=== PATIENT | male | born 1965 | race Caucasian/White ===

== ENCOUNTER 2017-01-17 13:47 | Emergency (ER) | payer SELFPAY ==
[~2017-01-17] VITALS: Ht 170.2 cm; Wt 77.1 kg
[~2017-01-17 13:47] MED LIST: ATIVAN1 MG PO; FLAGYL250 MG PO; FLORASTOR250 MG PO; LEVAQUIN500 MG PO; METOPROLOL50 M1 PO; NORCO 325 MG-7.1 TAB PO; PRINIVIL10 M1 PO; PROTONIX40 MG/Pack PO; ZOFRAN4 M3 PO
[2017-01-17 14:10] VITALS: BP 155/92
[2017-01-17] MEDS ORDERED: KETOROLAC 60 MG/2 ML VIAL IM ONE (14:15)
[2017-01-17] MEDS ORDERED: ONDANSETRON 4 MG ODT PO ONE (14:15)
[2017-01-17] MEDS ORDERED: ONDANSETRON 4 MG/2 ML VIAL IVP ONE (14:20)
[2017-01-17] MEDS ORDERED: KETOROLAC 30 MG/ML VIAL IVP ONE (14:20)
--- NOTE | 2017-01-17 14:20 | NUR ---
PATIENT WHEELCHAIR ASSISTED TO BED 3 AT THIS TIME.
--- NOTE | 2017-01-17 14:22 | NUR ---
51/M BIB C/O N/V/D X 3 DAYS. PT STATES HAS PAIN MID EPIGASTRIUM & R FLANK & N/V AT THIS TIME; SKIN IS PINK/WARM/DRY; AAOX4 WITH EVEN AND STEADY GAIT; LUNGS CLEAR BL; HR EVEN AND REGULAR; PT DENIES ANY FEVER, SOB, OR COUGH AT THIS TIME; PATIENT STATES PAIN OF 8/10 AT THIS TIME; VSS; PATIENT POSITIONED FOR COMFORT; HOB ELEVATED; BEDRAILS UP X2; BED DOWN. ER MD MADE AWARE OF PT STATUS.
--- NOTE | 2017-01-17 14:30 | NUR ---
LAB AT BEDSIDE
--- NOTE | 2017-01-17 15:20 | NUR ---
ALL MEDICATIONS ADMINISTERED TO IV RIGHT FOOT
[2017-01-17] MEDS ORDERED: MORPHINE SULFATE 4 MG/ML SYR IVP ONE ×2 (15:25→17:05)
[2017-01-17] MEDS ORDERED: PROMETHAZINE 25 MG/ML VIAL IVP ONE ×2 (15:25→17:05)
--- NOTE | 2017-01-17 16:06 | NUR ---
PT C/O STOMACH PAIN 03/05. ER MD DR DUARTE NOTIFIED. WILL CONTINUE TO MONITOR.
--- NOTE | 2017-01-17 16:12 | NUR ---
John barrett in [facility] - 01/17/17 at 1612 by MED1 RT AT BEDSIDE
--- NOTE | 2017-01-17 16:47 | NUR ---
Patient appears to be resting comfortably in bed. Vital Signs within normal limits. Respirations even and unlabored.WILL CONTINUE MONITOR
[2017-01-17 18:10] VITALS: BP 115/78
--- NOTE | 2017-01-17 18:10 | NUR ---
Patient discharged with v/s stable. Written and verbal after care instructions given and explained. Patient alert, oriented and verbalized understanding of instructions. Wheel Chair Assisted with to car. All questions addressed prior to discharge. ID band removed. Patient advised to follow up with PMD. Rx of PHENERGAN & NORCO given. Patient educated on indication of medication including possible reaction and side effects. Opportunity to ask questions provided and answered.
== END 2017-01-17 18:10 | disposition home or self-care (01) ==
LOC: MED 13:47
DX: R10.31 Right lower quadrant pain (principal); R11.2 Nausea with vomiting, unspecified; K21.9 Gastro-esophageal reflux disease without esophagitis; I10 Essential (primary) hypertension; Z87.442 Personal history of urinary calculi; Z88.8 Allergy status to other drugs, medicaments and biological substances
CPT/HCPCS: 36415; 74176; 80053; 83690; 85025; 96374; 96375; 96376; 99285; J1885; J2270; J2405; J2550

== ENCOUNTER 2017-01-19 09:43 | Inpatient (IN) | payer SELFPAY ==
[~2017-01-19] VITALS: Ht 170.2 cm; Wt 78.5 kg
[2017-01-19 09:51] VITALS: BP 158/110
[2017-01-19] MEDS ORDERED: PANTOPRAZOLE 40 MG INJ VIAL IVP ONE (09:55)
[2017-01-19] MEDS ORDERED: ONDANSETRON 4 MG/2 ML VIAL IVP ONE (09:55)
[2017-01-19] MEDS ORDERED: NACL 0.9% 1,000 ML IV ONE (09:55)
[2017-01-19] MEDS ORDERED: KETOROLAC 30 MG/ML VIAL IVP ONE (10:05)
--- NOTE | 2017-01-19 10:57 | NUR ---
PT STATES ABDOMEN PAIN FOR ONE DAY . DENIES D; SKIN IS PINK/WARM/DRY; AAOX4 WITH EVEN AND STEADY GAIT; LUNGS CLEAR BL; HR EVEN AND REGULAR; PT DENIES ANY FEVER, CP, SOB, OR COUGH AT THIS TIME; PATIENT STATES PAIN OF 10/10 AT THIS TIME; VSS; PATIENT POSITIONED FOR COMFORT; HOB ELEVATED; BEDRAILS UP X2; BED DOWN. ER MD MADE AWARE OF PT STATUS.
[2017-01-19] MEDS ORDERED: fentaNYL 0.05 MG/ML VIAL IVP ONE (11:00)
--- NOTE | 2017-01-19 11:26 | NUR ---
PT LEFT FOR X RAY
[2017-01-19] MEDS ORDERED: PROMETHAZINE 25 MG/ML VIAL IVP ONE (11:45)
--- NOTE | 2017-01-19 12:19 | NUR ---
PT AWAKE, ALERT, ORIENTED. STATES PAIN SCALE 8/10 AT THIS TIME.
--- NOTE | 2017-01-19 12:55 | NUR ---
Patient will be admitted to care of DR. ISLAS. Admited to TELE Will go to [facility] [address] Bel[facility] list completed. Report to LUCRECIA POWELL RN
[2017-01-19] MEDS ORDERED: DOCUSATE SODIUM 100 MG GELCAP PO PRN (13:05)
[2017-01-19] MEDS ORDERED: ACETAMINOPHEN 325 MG TAB PO PRN (13:05)
--- NOTE | 2017-01-19 13:10 | NUR ---
RECEIVED PATIENT FROM ER WITH CHIEF COMPLAINING OF INTRACTABLE N/V. ABD PAIN TO LOWER RIGHT WAIST AREA. PATIENT APPEARED TO BE GUARDED AND IN PAIN, AND NAUSEA BUT NO VOMITING. AAOX4, NO SOB DISTRESS NOTED. VSS STABLE WITH NO FEVER. O2 SAT AT 99% ON ROOM AIR. INITIAL ASSESSMENT DONE. SKIN INTACT. LUNG SOUNDED CLEAR. BOWEL SOUNDED ACTIVE. PATIENT HAS IV TO LEFT HAND 22G INTACT AND FLUSHED WELL. INSTRUCTED PATIENT TO STAY CALM, PLAN OF CARE AND PAIN MANAGEMENT DISCUSSED, PATIENT VERBALIZED UNDERSTANDING. HEAD OF BED ELEVATED. MRSA SWAB DONE. PUT PATIENT ON TELE MONITOR. REORIENTED PATIENT TO CURRENT UNIT. CALL LIGHT WITHIN REACH. WILL CONTINUE TO MONITOR.
[2017-01-19] MEDS ORDERED: METOPROLOL 50 MG TAB PO SCH (13:20)
[2017-01-19 13:29] VITALS: BP 140/88
[2017-01-19] MEDS: PIPER/TAZO 3.375GM/D5W PREMIX 50 ML IV SCH ×2 (13:58→20:09)
[2017-01-19] MEDS: MORPHINE SULFATE 2 MG/ML SYR IVP PRN ×2 (13:59→20:10)
[2017-01-19] MEDS: NACL 0.9% 1,000 ML IV SCH ×2 (13:59→21:50)
[2017-01-19] MEDS ORDERED: POTASSIUM CHLORIDE 40 MEQ, LIDOCAINE 1% 25 MG in NACL 0.9% 250 ML IV SCH (14:00)
--- NOTE | 2017-01-19 14:01 | NUR ---
MORPHINE 2MG IVP GIVEN FOR ABD PRESSURE AND STABBING PAIN 07/05. HEAD OF BED ELEVATED, PATIENT APPEARED TO BE CALMER NOW. INSTRUCTED PATIENT TO PUSH CALL LIGHT WHEN NEEDED HELPS, PATIENT VERBALIZED UNDERSTANDING. NO SIGN OF DISTRESS NOTED. CALL LIGHT WITHIN REACH. WILL CONTINUE TO MONITOR.
[2017-01-19 16:00] VITALS: BP 116/81
[2017-01-19] MEDS ORDERED: LISINOPRIL 10 MG TAB PO SCH (16:00)
--- NOTE | 2017-01-19 16:00 | NUR ---
SCD APPLIED TO BLE. PATIENT TOLERATED WELL. NO SIGN OF DISTRESS NOTED. FAMILY MEMBER AT BEDSIDE. CALL LIGHT WITHIN REACH. WILL CONTINUE TO MONITOR.
[2017-01-19] MEDS ORDERED: METOPROLOL50 M1 PO (16:26)
--- NOTE | 2017-01-19 19:27 | NUR ---
RECEIVED PT REPORT FROM MIKA ROPER AT BEDSIDE, FOR CONTINUITY OF CARE. PT STABLE IN ROOM WITH FAMILY, NO DISTRESS NOTED. CALL LIGHT WITHIN REACH.
--- NOTE | 2017-01-19 19:30 | NUR ---
ENDORSED PATIENT CURRENT PLAN OF CARE TO NIGHT NURSE RUBÉN ROPER. PATIENT RESTING WELL IN BED. NO SIGN OF DISTRESS NOTED.
--- NOTE | 2017-01-19 19:40 | NUR ---
SHIFT ASSESSMENT DONE AT THIS TIME. PT IS A/O X4, NO ACUTE DISTRESS. PT ABLE TO FOLLOW COMMANDS AND VERBALIZED NEEDS. VITAL SIGNS ARE STABLE, PT ON ROOM AIR WITH OXYGEN SATURATION AT 95%. NO RESPIRATORY DISTRESS NOTED. PT DENIES CHEST PAIN OR SOB. PT C.O. RT LOWER ABDOMINAL PAIN AND NAUSEA, WILL PROVIDE MEDICATION ORDERED, SEE eMAR. NO VOMITING NOTED. LUNG SOUNDS ARE CLEAR, BOWEL SOUNDS ARE ACTIVE. IV ACCESS NOTED TO LEFT HAND #20G, PATENT AND INTACT. SKIN INTACT. ALLERGY AND ID BAND ON. SCD'S IN PLACE. IS AT BEDSIDE, PT DEMONSTRATED USE AND VERBALIZED UNDERSTANDING OF USE. ALL NEEDS MET, SAFETY PRECAUTIONS IMPLEMENTED. CALL LIGHT WITHIN REACH. WILL CONTINUE TO MONITOR PT.
[2017-01-19 20:00] VITALS: BP 124/79
[2017-01-19] MEDS: SACCHAROMYCES 250 MG CAP PO SCH (20:09)
[2017-01-19] MEDS: ONDANSETRON 4 MG/2 ML VIAL IVP PRN (20:10)
--- NOTE | 2017-01-19 20:10 | NUR ---
PROVIDED PT WITH PAIN AND NAUSEA MEDICATION. SEE eMAR. PT ALSO TOLERATED SCHEDULED PM MEDICATIONS. NO ACUTE DISTRESS NOTED AT THIS TIME. WILL CONTINUE TO MONITOR. CALL LIGHT WITHIN REACH.
--- NOTE | 2017-01-19 21:50 | NUR ---
PT REQUESTING MEDICATION FOR SLEEP, PER PT, PT HAS TROUBLE SLEEPING. MD DR. CR AWARE AND WILL PLACE NEW ORDERS.
[2017-01-19] MEDS ORDERED: ZOLPIDEM 10 MG TAB PO SCH (21:55)
--- NOTE | 2017-01-19 22:12 | NUR ---
PROVIDED PT WITH SLEEPING MEDICATION, SEE eMAR. PT REMAINS STABLE. NO DISTRESS.
[2017-01-20] VITALS: BP 108/71
[2017-01-20] MEDS: ONDANSETRON 4 MG/2 ML VIAL IVP PRN ×5 (00:08→22:36)
[2017-01-20] MEDS: MORPHINE SULFATE 2 MG/ML SYR IVP PRN ×5 (00:09→22:36)
--- NOTE | 2017-01-20 00:09 | NUR ---
PT VITAL SIGNS REMAIN STABLE, PT C.O. PAIN, PAIN MEDICATION ADMINISTERED. SEE eMAR.
--- NOTE | 2017-01-20 01:10 | NUR ---
PT STABLE, NO S/S OF ACUTE DISTRESS. PT SLEEPING WELL. CALL LIGHT WITHIN REACH.
--- NOTE | 2017-01-20 02:01 | NUR ---
PT SLEEPING NO DISTRESS NOTED. CALL LIGHT WITHIN REACH.
--- NOTE | 2017-01-20 03:19 | NUR ---
WATCHING TV AT THIS TIME. NO DISCOMFORT NOTED. PT. ON BEDSIDE. Addendum: 01/20/17 at 1737 by Geovanni Ramirez LVN WRONG ENTRY: ENTERED WRONG TIME.
[2017-01-20 04:00] VITALS: BP 106/72
--- NOTE | 2017-01-20 04:00 | NUR ---
PT VITAL SIGNS REMAIN STABLE, PT C.O. PAIN. PROVIDED PAIN MEDICATION PER ORDERS, SEE eMAR. CALL LIGHT WITHIN REACH.
[2017-01-20] MEDS: PIPER/TAZO 3.375GM/D5W PREMIX 50 ML IV SCH ×3 (04:18→21:13)
[2017-01-20] MEDS: NACL 0.9% 1,000 ML IV SCH ×2 (04:18→15:11)
--- NOTE | 2017-01-20 06:00 | NUR ---
PT REMAINS ASLEEP, NO DISTRESS NOTED. CALL LIGHT WITHIN EASY REACH.
--- NOTE | 2017-01-20 06:58 | NUR ---
PATIENT HAS BEEN SCREENED AND CATEGORIZED MODERATE NUTRITION RISK. PATIENT WILL BE SEEN WITHIN 3-5 DAYS OF ADMISSION. 01/22/17-01/24/17 DEVI BUTLER MS, RDN
--- NOTE | 2017-01-20 07:12 | NUR ---
ASSUMED CONTINUITY OF CARE. NO SIGNS AND SYMPTOMS OF ACUTE DISTRESS NOTED. INITIAL ASSESSMENT DONE. KEEP COMFORTABLE ON BED. EXPLAINED DIAGNOSIS, PLAN OF CARE, PAIN MANAGEMENT TEACHING, USE OF CALL LIGHT/BED/TV/BATHROOM. VERBALIZED UNDERSTANDING. CALL LIGHT WITHIN REACH.
--- NOTE | 2017-01-20 07:12 | NUR ---
ENDORSED PT TO RADHA Ritter LVN FOR PT CONTINUITY OF CARE. PT SLEEPING AT THIS TIME, IN STABLE CONDITION. NO DISTRESS.
[2017-01-20 08:00] VITALS: BP 110/73
--- NOTE | 2017-01-20 08:22 | NUR ---
DR. BERNAL CAME AND SPOKE TO PT. AND PT. .
[2017-01-20] MEDS: PANTOPRAZOLE 40 MG INJ VIAL IVP SCH (08:46)
[2017-01-20] MEDS: GABAPENTIN 100 MG CAP PO SCH ×3 (09:21→17:26)
[2017-01-20] MEDS: DOCUSATE SODIUM 100 MG GELCAP PO SCH ×2 (09:21→21:14)
[2017-01-20] MEDS: SACCHAROMYCES 250 MG CAP PO SCH ×2 (09:21→21:13)
[2017-01-20] MEDS: LISINOPRIL 10 MG TAB PO SCH (09:22)
--- NOTE | 2017-01-20 09:42 | NUR ---
WENT TO CT VIA WHEELCHAIR. NO C/O PAIN. IN STABLE CONDITION.
--- NOTE | 2017-01-20 09:54 | NUR ---
BACK FROM CT VIA WHEELCHAIR. NO C/O PAIN. NO C/O NAUSEA. KEEP COMFORTABLE ON BED. CALL LIGHT WITHIN REACH.
[2017-01-20 12:00] VITALS: BP 104/69
--- NOTE | 2017-01-20 12:00 | NUR ---
VITALS SIGNS STABLE. C/O ABD PAIN 2/10. NO ACUTE DISTRESS NOTED. WILL MONITOR.
--- NOTE | 2017-01-20 15:19 | NUR ---
WATCHING TV AT THIS TIME. NO DISCOMFORT NOTED. PT. ON BEDSIDE.
[2017-01-20 16:00] VITALS: BP 117/76
--- NOTE | 2017-01-20 19:09 | NUR ---
BEDSIDE REPORT GIVEN TO LISA DURBIN -JACQUELIN. IVF INFUSING WELL. IN STABLE CONDITION.
--- NOTE | 2017-01-20 19:10 | NUR ---
RECEIVED REPORT FROM DAY SOLAR HOT WATER INSTALLER, PATIENT IS AAOX4, ON ROOM AIR, NO SOB OR SIGN OF DISTRESS, PATIENT HAS IV TO LEFT THUMB 22G PATENT AND INTACT. PATIENT DENIES PAIN AT THIS TIME, DISCUSSED PLAN OF CARE WITH PATIENT, PATIENT VERBALIZED UNDERSTANDING, CALL LIGHT WITHIN REACH. WILL CONTINUE TO MONITOR.
[2017-01-20 20:00] VITALS: BP 115/71
[2017-01-20] MEDS ORDERED: ZOLPIDEM 10 MG TAB PO SCH (20:30)
--- NOTE | 2017-01-20 21:00 | NUR ---
CALLED DR CR FOR A REQUEST OF A SLEEP AID PER PATIENT REQUEST, ORDER RECEIVED, WILL FOLLOW UP WITH ORDER.
[2017-01-20] MEDS: SODIUM PHOS / POTASSIUM PHOS 1 PKT PDR PO SCH (21:13)
[2017-01-20] MEDS: METOPROLOL 50 MG TAB PO SCH (21:14)
--- NOTE | 2017-01-20 21:25 | NUR ---
PM MEDS GIVEN, PATIENT TOLERATED WELL, CALL LIGHT WITHIN REACH. WILL CONTINUE TO MONITOR.
--- NOTE | 2017-01-20 22:50 | NUR ---
PATIENT C/O PAIN OF ABD, ADMINISTERED MORPHINE PER MD ORDER, CALL LIGHT WITHIN REACH. WILL CONTINUE TO MONITOR.
[2017-01-21] VITALS (7 sets, daily range): BP systolic 103–144; BP diastolic 65–89
--- NOTE | 2017-01-21 00:15 | NUR ---
VITAL SIGNS STABLE, NO SOB OR SIGN OF DISTRESS, CALL LIGHT WITHIN REACH. WILL CONTINUE TO MONITOR.
--- NOTE | 2017-01-21 02:15 | NUR ---
PATIENT SLEEPING, NO SOB OR SIGN OF DISTRESS, CALL LIGHT WITHIN REACH. WILL CONTINUE TO MONITOR.
[2017-01-21] MEDS: PIPER/TAZO 3.375GM/D5W PREMIX 50 ML IV SCH ×3 (04:37→20:39)
[2017-01-21] MEDS: ONDANSETRON 4 MG/2 ML VIAL IVP PRN ×3 (04:38→22:13)
[2017-01-21] MEDS: MORPHINE SULFATE 2 MG/ML SYR IVP PRN ×4 (04:38→22:12)
--- NOTE | 2017-01-21 04:40 | NUR ---
PATIENT C/O PAIN IN ABDOMEN, ADMINISTERED MORPHINE AND ZOFRAN PER MD ORDER, CALL LIGHT WITHIN REACH. WILL CONTINUE TO MONITOR
--- NOTE | 2017-01-21 06:05 | NUR ---
PATIENT SLEEPING, NO SOB OR SIGN OF DISTRESS, CALL LIGHT WITHIN REACH. WILL CONTINUE TO MONITOR.
[2017-01-21] MEDS: NACL 0.9% 1,000 ML IV SCH ×2 (06:18→20:40)
--- NOTE | 2017-01-21 07:00 | NUR ---
CHECKED ON PATIENT, TECH MONITOR ALERTED PATIENT HR DROPPING TO 45, PATIENT SITTING UP IN BED RESTING, STATED HE WAS OKAY AND JUST FELT TIRED CHECKED BP 115/70 HR INCREASED TO 57, CALL LIGHT WITHIN REACH. WILL CONTINUE TO MONITOR.
--- NOTE | 2017-01-21 07:15 | NUR ---
ENDORSED PATIENT TO DAY PLATE PREPARER AT BEDSIDE, PATIENT IN STABLE CONDITION.
--- NOTE | 2017-01-21 08:00 | NUR ---
Patient's Plan of Care was discussed and reviewed with LOAD OUT SUPERVISOR: RADHA
[2017-01-21] MEDS: DOCUSATE SODIUM 100 MG GELCAP PO SCH ×2 (08:34→20:39)
[2017-01-21] MEDS: SACCHAROMYCES 250 MG CAP PO SCH ×2 (08:34→20:39)
[2017-01-21] MEDS: GABAPENTIN 100 MG CAP PO SCH ×3 (08:34→16:58)
[2017-01-21] MEDS: LISINOPRIL 10 MG TAB PO SCH (08:36)
[2017-01-21] MEDS: METOPROLOL 50 MG TAB PO SCH ×2 (08:36→20:39)
[2017-01-21] MEDS: SODIUM PHOS / POTASSIUM PHOS 1 PKT PDR PO SCH ×3 (08:37→20:44)
[2017-01-21] MEDS: PANTOPRAZOLE 40 MG INJ VIAL IVP SCH (08:43)
--- NOTE | 2017-01-21 10:00 | NUR ---
NO ACUTE DISTRESS NOTED. C/O ABD PAIN 08/05. PAIN MANAGEMENT TEACHING EXPLAINED. VERBALIZED UNDERSTANDING. KEEP COMFORTABLE ON BED. INFORMED DR. WHYTE OF PT. C/O ABD 08/05. AND ASKED FOR ANY ORDER. PER DR. WHYTE, GIVE MORPHINE 2 MG. IVP ORDERED. INFORMED CHARGE NURSE DANIEL BARRAGAN. WILL MEDICATE PER MD ORDER.
--- NOTE | 2017-01-21 11:10 | NUR ---
DR. CR AND DR. WHYTE CAME AND SPOKE TO PT..
--- NOTE | 2017-01-21 13:20 | NUR ---
RADIOLOGY STAFF -ALLA PICK-UP PT. FOR CXR VIA WHEELCHAIR. IN STABLE CONDITION.
[2017-01-21] MEDS ORDERED: KETOROLAC 15 MG/ML VIAL IVP PRN (13:30)
[2017-01-21] MEDS ORDERED: GABAPENTIN 300 MG CAP PO SCH (15:00)
--- NOTE | 2017-01-21 17:38 | NUR ---
SEEN WATCHING TV AT THIS TIME. NO DISCOMFORT NOTICED. CALL LIGHT WITHIN REACH.
--- NOTE | 2017-01-21 19:10 | NUR ---
ENDORSED TO LISA DURBIN -JACQUELIN. IN STABLE CONDITION. PT. ON BEDSIDE. IV ACCESS ON LEFT HAND INFILTRATED. TRIED TO INSERT IV ONCE BUT UNSUCCESSFUL. ENDORSED TO [facility] NURSE TO INSERT IV ACCESS.
--- NOTE | 2017-01-21 19:15 | NUR ---
RECEIVED REPORT FROM DAY SHIFT ESTIMATION MANAGER AT BEDSIDE, PATIENT IS AAOX4, RESTING IN BED WITH AT BEDSIDE, PATIENT IS ON ROOM AIR, NO SOB OR SIGN OF DISTRESS AT THIS TIME, NO COMPLAINT OF PAIN, PATIENT SKIN IS INTACT. CURRENTLY HAS IV TO LH 22G SALINE LOCKED, PER DAY SHIFT, IV BECAME INFILTRATED, WILL INSERT NEW IV. DISCUSSED PLAN OF CARE WITH PATIENT, PATIENT VERBALIZED UNDERSTANDING, CALL LIGHT WITHIN REACH. WILL CONTINUE TO MONITOR.
--- NOTE | 2017-01-21 20:07 | NUR ---
CALLED DR CR, PATIENT REQUESTED SLEEPING AID, DR CR TO PUT IN ORDER, WILL FOLLOW UP.
--- NOTE | 2017-01-21 20:30 | NUR ---
NEW IV STARTED TO PTS LEFT FOREARM, 22G PATENT, PATIENT TOLERATED WELL.
--- NOTE | 2017-01-21 20:44 | NUR ---
PM MEDS TAKEN, PATIENT TOLERATED WELL, PATIENT REFUSED NEUTRAPHOS PACKET, STATES MAKES HIM SICK, WILL CONTINUE TO MONITOR
[2017-01-21] MEDS: ZOLPIDEM 10 MG TAB PO SCH (21:00)
--- NOTE | 2017-01-21 22:30 | NUR ---
PATIENT RESTING IN BED, ADMINISTERED MORPHINE PER MD ORDER, PT C/O PAIN IN ABDOMEN, CALL LIGHT WITHIN REACH, WILL CONTINUE TO MONITOR
[2017-01-22] VITALS (7 sets, daily range): BP systolic 105–140; BP diastolic 63–78
--- NOTE | 2017-01-22 00:15 | NUR ---
VITAL SIGNS STABLE, PATIENT SLEEPING, CALL LIGHT WITHIN REACH. WILL CONTINUE TO MONITOR.
--- NOTE | 2017-01-22 02:10 | NUR ---
PATIENT SLEEPING, NO SOB OR SIGN OF DISTRESS, CALL LIGHT WITHIN REACH. WILL CONTINUE TO MONITOR.
--- NOTE | 2017-01-22 04:30 | NUR ---
PATIENT SLEEPING, NO SOB OR SIGN OF DISTRESS, VITAL SIGNS STABLE, CALL LIGHT WITHIN REACH. WILL CONTINUE TO MONITOR.
[2017-01-22] MEDS: PIPER/TAZO 3.375GM/D5W PREMIX 50 ML IV SCH ×3 (04:31→20:19)
[2017-01-22] MEDS: MORPHINE SULFATE 2 MG/ML SYR IVP PRN ×3 (04:32→23:56)
--- NOTE | 2017-01-22 05:50 | NUR ---
PATIENT SLEEPING, NO SOB OR SIGN OF DISTRESS, CALL LIGHT WITHIN REACH. WILL CONTINUE TO MONITOR.
--- NOTE | 2017-01-22 07:17 | NUR ---
PATIENT SITTING UP IN BED, ENDORSED CARE TO DAY SHIFT RN AT BEDSIDE, PATIENT IN STABLE CONDITION.
--- NOTE | 2017-01-22 07:20 | NUR ---
RECEIVED REPORT FROM JACQUELIN GONZALEZ. PT IS SITTING UP IN BED, AAOx4, SKIN IS INTACT, IV ON LT FA 22 G, PATIENT AND INTACT, INFUSING WELL. NO S/S OF RESPIRATORY DISTRESS OR DISCOMFORT NOTED. SAFETY/FALL PRECAUTIONS IN PLACE. DISCUSSED PLAN OF CARE, PT VERBALIZED UNDERSTANDING. CALL LIGHT WITHIN REACH. WILL CONTINUE TO MONITOR.
[2017-01-22] MEDS: PANTOPRAZOLE 40 MG INJ VIAL IVP SCH (08:38)
[2017-01-22] MEDS: ONDANSETRON 4 MG/2 ML VIAL IVP PRN ×2 (08:39→23:57)
[2017-01-22] MEDS: GABAPENTIN 100 MG CAP PO SCH ×3 (08:39→17:45)
[2017-01-22] MEDS: SACCHAROMYCES 250 MG CAP PO SCH ×2 (08:39→20:20)
[2017-01-22] MEDS: DOCUSATE SODIUM 100 MG GELCAP PO SCH ×2 (08:39→20:19)
[2017-01-22] MEDS: SODIUM PHOS / POTASSIUM PHOS 1 PKT PDR PO SCH ×2 (08:49→20:21)
[2017-01-22] MEDS: LISINOPRIL 10 MG TAB PO SCH (09:00)
[2017-01-22] MEDS: METOPROLOL 50 MG TAB PO SCH ×2 (09:00→20:20)
[2017-01-22] MEDS: NACL 0.9% 1,000 ML IV SCH ×2 (10:10→23:59)
--- NOTE | 2017-01-22 10:41 | NUR ---
ENDORSED PT TO JACQUELIN GARCIA FOR CONTINUITY OF CARE. PT IS STABLE AT THIS TIME.
--- NOTE | 2017-01-22 10:42 | NUR ---
RECEIVED REPORT FROM JACQUELIN BARRAGAN. PT RESTING IN BED. AT BESIDE. AAOX4. NO S/S OF ACUTE DISTRESS. PT STATES PAIN. MEDICATED ORDERED. IV SITE PATENT AND INTACT. CALL LIGHT WITHIN REACH. WILL CONTINUE TO MONITOR.
--- NOTE | 2017-01-22 12:00 | NUR ---
PT UP AND AMBULATING TO SHOWER WITH SHANNAN BUTCHER. NO S/S OF ACUTE DISTRESS.
--- NOTE | 2017-01-22 12:11 | NUR ---
PT BACK IN BED. IV CONNECTED AND INFUSING WELL. CALL LIGHT WITHIN REACH. SAFETY MEASURES ENSURED. WILL CONTINUE TO MONITOR.
[2017-01-22] MEDS ORDERED: KETOROLAC 30 MG/ML VIAL IVP PRN (13:25)
[2017-01-22] MEDS ORDERED: KETOROLAC 15 MG/ML VIAL IVP SCH (13:26)
--- NOTE | 2017-01-22 14:06 | NUR ---
PT STATED PAIN MEDICATION DID NOT HELP. DR. LIRA MADE AWARE.
--- NOTE | 2017-01-22 15:39 | NUR ---
PT IS SLEEPING IN BED. NO S/S OF DISTRESS, IV INFUSING WELL. AT BEDSIDE. CALL LIGHT WITHIN REACH. WILL CONTINUE TO MONITOR.
[2017-01-22] MEDS ORDERED: KETOROLAC 10 MG TAB PO PRN (16:20)
--- NOTE | 2017-01-22 17:51 | NUR ---
ENDORSED PLAN OF CARE TO JACQUELIN BARRAGAN.
--- NOTE | 2017-01-22 17:53 | NUR ---
RECEIVED REPORT FROM JACQUELIN GARCIA. PT IS RESTING ON BED, NO S/S OF RESPIRATORY DISTRESS OR DISCOMFORT NOTED, ALL NEEDS MET AT THIS TIME, AT BEDSIDE, CALL LIGHT WITHIN REACH, WILL CONTINUE TO MONITOR.
--- NOTE | 2017-01-22 19:26 | NUR ---
ENDORSED PT TO JACQUELIN LONDON. FOR CONTINUE OF CONTINUITY OF CARE. PT IS STABLE AT THIS TIME.
--- NOTE | 2017-01-22 19:27 | NUR ---
RECEIVED REPORT FROM DAY SHIFT NURSE. PATIENT IS AAOX4, ON TELE MONITORING, DENIES PAIN AT THIS TIME. ON ROOM AIR, NO S/S OF RESPIRATORY DISTRESS/DISCOMFORT NOTED. IV SITE IS PATENT AND INTACT. SKIN IS INTACT. PLAN OF CARE DISCUSSED, VERBALIZED UNDERSTANDING. SAFETY MEASURES CHECKED, CALL LIGHT WITHIN REACH. WILL CONTINUE TO MONITOR.
--- NOTE | 2017-01-22 20:24 | NUR ---
DUE MEDS GIVEN. PT TOLERATED WELL.
[2017-01-22] MEDS: ZOLPIDEM 10 MG TAB PO SCH (21:54)
--- NOTE | 2017-01-22 23:56 | NUR ---
PATIENT HAS COMPLAINED OF PAIN OF 7/10 AND FEELING NAUSEOUS. ADMINISTERED MEDICATION ORDERED.
--- NOTE | 2017-01-23 01:15 | NUR ---
PT IS SLEEPING. NO S/S OF RESPIRATORY DISTRESS/DISCOMFORT NOTED. CALL LIGHT WITHIN REACH.
[2017-01-23 04:00] VITALS: BP 118/72
--- NOTE | 2017-01-23 04:07 | NUR ---
PT SLEEPING, EASILY AROUSABLE BY NAME. V/S CHECKED AND STABLE. HAS NO COMPLAIN OF PAIN. SAFETY MEASURES CHECKED, CALL LIGHT WITHIN REACH.
[2017-01-23] MEDS: PIPER/TAZO 3.375GM/D5W PREMIX 50 ML IV SCH ×2 (05:44→12:03)
[2017-01-23] MEDS: MORPHINE SULFATE 2 MG/ML SYR IVP PRN (06:18)
--- NOTE | 2017-01-23 06:18 | NUR ---
PT HAS COMPLAINED OF PAIN OF 7/10. V/S CHECKED, ADMINISTERED PAIN MEDS PER MD ORDERED.
--- NOTE | 2017-01-23 07:22 | NUR ---
ENDORSED REPORT TO DAY SHIFT NURSE FOR CONTINUITY OF CARE. PATIENT IS IN STABLE CONDITION.
--- NOTE | 2017-01-23 07:23 | NUR ---
RECEIVED PT AWAKE WHILE LYING ON BED, AAOX4, WITH NO S/S OF RESPIRATORY DISTRESS, WITH IV ON LEFT FOREARM G22 INFUSING FLUIDS WELL, SKIN IS INTACT. DISCUSSED PLAN OF CARE, PT VERBALIZED UNDERSTANDING. PT COMPLAINED OF NAUSEA, WILL GIVE MEDS ORDERED. CALL LIGHT WITHIN REACH, WILL CONTINUE TO MONITOR.
[2017-01-23] MEDS: ONDANSETRON 4 MG/2 ML VIAL IVP PRN ×2 (07:43→12:00)
[2017-01-23] MEDS: GABAPENTIN 100 MG CAP PO SCH ×2 (08:17→12:12)
[2017-01-23] MEDS: LISINOPRIL 10 MG TAB PO SCH (08:17)
[2017-01-23] MEDS: METOPROLOL 50 MG TAB PO SCH (08:18)
[2017-01-23] MEDS: SACCHAROMYCES 250 MG CAP PO SCH (08:18)
[2017-01-23] MEDS: PANTOPRAZOLE 40 MG INJ VIAL IVP SCH (08:19)
[2017-01-23] MEDS: DOCUSATE SODIUM 100 MG GELCAP PO SCH (08:24)
[2017-01-23] MEDS: SODIUM PHOS / POTASSIUM PHOS 1 PKT PDR PO SCH (08:24)
--- NOTE | 2017-01-23 08:24 | NUR ---
DUE MEDS GIVEN, PT TOLERATED WELL. HELD COLACE DUE TO LOOSE STOOL X1 THIS MORNING. PT REFUSED NEUTRA PHOS, STATED IT UPSETS HIS STOMACH. NO S/S OF DISTRESS, WITH RELATIVE AT BEDSIDE. CALL LIGHT WITHIN REACH, WILL CONTINUE TO MONITOR.
--- NOTE | 2017-01-23 10:21 | NUR ---
PT AWAKE WITTING ON BED AND WATCHING TV. WITH RELATIVE AT BEDSIDE. IV ON LEFT FOREARM INFILTRATED, IV CATHETER REMOVED AND IS INTACT. CALL LIGHT WITHIN REACH, WILL CONTINUE TO MONITOR. Addendum: 01/23/17 at 1149 by Judith Song RN WRONG PATIENT
--- NOTE | 2017-01-23 10:22 | NUR ---
PT AWAKE SITTING ON BED WITH AT BEDSIDE. ALL NEEDS MET AT THIS TIME, NO COMPLAINTS. CALL LIGHT WITHIN REACH, WILL CONTINUE TO MONITOR.
[2017-01-23 10:37] VITALS: BP 142/76
[2017-01-23 12:00] VITALS: BP 143/92
--- NOTE | 2017-01-23 12:13 | NUR ---
PT COMPLAINED OF NAUSEA, ZOFRAN GIVEN VIA IVP. TOLERATED WELL. ALSO COMPLAINED OF PAIN, KETOROLAC GIVEN PER MOUTH. WILL REASSESS.
[2017-01-23] MEDS ORDERED: NEURONTIN300 MG PO (12:16)
--- NOTE | 2017-01-23 13:33 | NUR ---
DISCHARGE INSTRUCTIONS AND PRESCRIPTION GIVEN, PT VERBALIZED UNDERSTANDING. ID WRISTBAND, TELE AND IV ACCESS REMOVED, CATHETER TIP INTACT. PT INFORMED OF HIS FOLLOW UP APPOINTMENT. NO S/S OF DISTRESS. PT LEFT THE UNIT AMBULATING ACCOMPANIED BY IN STABLE CONDITION
== END 2017-01-23 13:33 | disposition home or self-care (01) | DRG 896 ==
LOC: MED 09:45 → MTU 12:44
PROVIDERS: ADMIT Family Medicine; ATTEND Family Medicine
DX: F12.288 Cannabis dependence with other cannabis-induced disorder (principal); N17.0 Acute kidney failure with tubular necrosis; G89.4 Chronic pain syndrome; R10.9 Unspecified abdominal pain; G43.A0 Cyclical vomiting, in migraine, not intractable; K76.0 Fatty (change of) liver, not elsewhere classified; E87.6 Hypokalemia; E80.6 Other disorders of bilirubin metabolism; I10 Essential (primary) hypertension; E86.0 Dehydration; K21.9 Gastro-esophageal reflux disease without esophagitis; K31.84 Gastroparesis; Z90.49 Acquired absence of other specified parts of digestive tract; Z98.890 Other specified postprocedural states; Z88.8 Allergy status to other drugs, medicaments and biological substances; Z71.51 Drug abuse counseling and surveillance of drug abuser; Z87.442 Personal history of urinary calculi